=== PATIENT | male | born 1990 | race Caucasian/White ===

== ENCOUNTER 2017-08-13 02:44 | Emergency (ER) | payer OTHER ==
[~2017-08-13] VITALS: Ht 172.7 cm; Wt 78.2 kg
[~2017-08-13 02:44] MED LIST: NAPROSYN500 MG PO
[2017-08-13 03:30] LABS: ADD MIUA? NO; BILIRUBIN NEGATIVE; BLOOD NEGATIVE; COLOR YELLOW ((YELLOW)); GLUCOSE (STRIP) NEGATIVE; KETONES NEGATIVE; LEUKOCYTES NEGATIVE; NITRITE NEGATIVE; PROTEIN (STRIP) 30; SPECIFIC GRAVITY 1.031 (1.000-1.030); UCUL ADDED? NO; UROBILINOGEN 0.2 MG/DL (0.2-1.0)
[2017-08-13 03:54] LABS: HEMATOCRIT 45.4 % (38.0-50.0); MCH 31.4 PG (29.0-34.0); MCHC 34.4 G/DL (30.0-36.0); MCV 91.3 FL (86-99); MEAN PLAT.VOLUME 10.2 uM^3 (9.0-12.4); PLATELET COUNT 171 K/uL (156-360); RBC DIS.WIDTH-CV 12.1 % (11.8-14.6); RBC DIS.WIDTH-SD 40.2 % (39-53); RED BLOOD COUNT 4.97 M/uL (4.00-5.50); WHITE BLOOD COUNT 7.9 K/uL (4.1-10.2)
[2017-08-13 04:08] LABS: CHLORIDE 103 mEq/L (99-109); POTASSIUM 4.1 mEq/L (3.7-5.4); SODIUM 137 mEq/L (136-147)
[2017-08-13 04:10] LABS: GLUCOSE 109 mg/dL (70-99)
[2017-08-13 04:11] LABS: ANION GAP 8 MEQ/L (2-14)
[2017-08-13 04:12] LABS: TOTAL BILIRUBIN 0.5 mg/dL (0.0-1.0)
[2017-08-13 04:13] LABS: ALKALINE PHOSPHATASE 78 IU/L (3-129)
[2017-08-13 04:14] LABS: GFR ESTIMATE (CALCULATED) > 59 mL/min/
[2017-08-13 04:15] LABS: UREA NITROGEN (BUN) 14 mg/dL (9-23)
[2017-08-13] MEDS ORDERED: ZOFRAN ODT4 MG PO (05:29)
[2017-08-13 06:22] VITALS: BP 111/61
== END 2017-08-13 06:26 | disposition home or self-care (01) ==
LOC: EME 02:44
DX: K52.9 Noninfective gastroenteritis and colitis, unspecified (principal)
CPT/HCPCS: 80053; 81003; 85027; 99281; 99285; J2405; J7030